=== PATIENT | female | born 1985 | race Caucasian/White ===

== ENCOUNTER 2019-04-17 15:42 | Emergency (ER) | payer MEDICARE, MEDICAID, SELFPAY ==
[2019-04-17 15:46] VITALS: BP 118/70; PULSE 90; RESP 16; TEMP 36.7; O2SAT 99
--- NOTE | 2019-04-17 16:13 | ED.GENADUL_ITS ---
Discharge Plan Disposition Patient Disposition: HOME Condition: Good Discharge Details Chief Complaint: RashLesion Clinical Impression: Insect bite Primary Care Provider: None,None ED Provider: Ilia Ortez Home Meds and New Rx's Prescriptions: New diphenhydramine HCl [Benadryl] 25 MG capsule 25 mg PO Q6H Qty: 100 RF: 0 hydroxyzine HCl 25 mg tablet 25 mg PO TID Qty: 14 RF: 0 No Action epinephrine 0.3 MG/0.3 ML auto-injector 0.3 mg IM ONCE Qty: 1 RF: 2 Discharge Instructions Instructions: Dermatitis (ED) Additional Instructions: At this time your rash is consistent with flea bites. Please wash all of your clothes, linens, and hot water. Vacuum and shampoo your carpets and chairs and couches. I would recommend washing all of your pets, and applying fully and take medicine. Please take the Benadryl and hydroxyzine as directed for the itching and rash. If you notice any worsening of your symptoms, or any new symptoms such as vomiting, diarrhea, fever, chills, shortness of breath, chest pain, numbness, weakness, or fainting , please return immediately to the emergency department for reevaluation. Please follow up with your primary care provider as soon as possible for reassessment and reevaluation. As always, it was a pleasure participating in your medical care today. Medical Decision Making This is a pleasant 34-year-old female who presents with a rash on her arms flanks for the last week, which is gradually been increasing. Notably itchy, improved with Benadryl. She stays at home with multiple animals all of which are known to have fleas, live inside, and sleep on her bed. She denies any other complaints. Physical exam demonstrates no concerning red flags but does demonstrate signs and symptoms notably clinically consistent with bite lesions that appear remarkably identical to fleabites. No evidence of scabies. No current clinical evidence of staph scalded skin syndrome, erythema multiforme, erythema migrans, toxic epidermal necrolysis, Rodarte-Fred syndrome, Kawasaki-like rash, meningococcemia, pemphigus vulgaris, or necrotizing fasciitis. I had a long discussion regarding the importance of cleaning her house, close, flea and tick medicine, will prescribe Benadryl and Atarax for itching. Discussed red flags which to return. I have extensively reviewed the treatment plan and discharge instructions with the patient. I have addressed all patient concerns at this time. The patient was made aware of what symptoms to monitor for that would warrant a return to the emergency department. Discussed the plan with the patient, they demonstrate verbal understanding and agreement with our assessment and plan at this time. HPI General Date/Time Provider Initiated Documentation: 04/17/19 16:05 . HPI Narrative: This is a pleasant 34-year-old female who presents today for evaluation of rash. Patient states that for the last week she has noticed a small very itchy little bug bite-like lesions on her arms flanks and some on her legs. It gradually been spreading. There is slightly improved with Benadryl, however she has run out of Benadryl. She denies any lesions in her mouth, burning when she urinates, vesicles, drainage, redness, fever or chills. She does stay at home with multiple animals, all of which are known to have fleas. She denies any new significant detergents. She has no other complaints at this time. Related Data Home Medications Medication Instructions Recorded Confirmed epinephrine 0.3 mg IM ONCE #1 syringe 15 04/17/19 diphenhydramine HCl [Benadryl] 25 mg PO Q6H #100 cap 04/17/19 hydroxyzine HCl 25 mg PO TID #14 tab 04/17/19 Previous Rx's Medication Instructions Recorded diphenhydramine HCl [Benadryl] 25 mg PO Q6H #100 cap 04/17/19 hydroxyzine HCl 25 mg PO TID #14 tab 04/17/19 Allergies Allergy/AdvReac Type Severity Reaction Status Date / Time venom-honey bee Allergy Severe Anaphylaxsi Unverified 04/17/19 15:49 s General Stated Complaint: RashLesion NATI: 5 Review of Systems All systems reviewed & are unremarkable except as noted in HPI and below PFSH Medical History Depression Family History Mother Diabetes Heart disease Social History Smoking/Tobacco Use Status: Never Alcohol Intake: never Drug use: Never Substance use type: does not use Do you feel safe at home: Yes Do you feel safe in your relationship?: Yes Exam Narrative Exam Narrative: 1.Const: Well-nourished, Well-developed, appearing stated age 2.Eyes: PERRL, no conjunctival injection, and symmetrical lids. 3.ENT: Atraumatic external nose and ears. Moist MM. Neck: Symmetric, trachea midline, No thyromegaly. 4.CVS: +S1/S2, No murmurs or gallops. Peripheral pulses 2+ and equal in all extremities. Brisk capillary refill in all extremities. 5.RESP: Unlabored respiratory effort. Clear to auscultation bilaterally. No w heezes rales or rhonchi 6.GI: Soft, Nontender/Nondistended, No hepatosplenomegaly. No guarding or rebound. 7.MSK: Normocephalic/Atraumatic, Extremities w/o deformity or ttp No cyanosis or clubbing, Normal movement of all extremities 8.Skin: Warm, Dry. Multiple small erythematous wheals that are mildly erythematous and irritated. Easily blanching. Clinically consistent with flea bite. No evidence of lesions in the intertriginous areas. Negative Nikolsky sign. No large vesicles or bulla. No palpable purpura. No oral lesions. No mucosal lesions. No evidence of severe cellulitis. No evidence of vaccine preventable rash. 9.Neuro: anesthesia assistant II-XII grossly intact. Sensation grossly intact, no focal neurologic deficits. 10.Psych: (AAO) x3. Appropriate mood and affect Course Vital Signs Vital signs: Vital Signs Temperature 36.7 C 04/17/19 15:46 Pulse 90 04/17/19 15:46 Respiratory Rate 16 04/17/19 15:46 Blood Pressure 118/70 04/17/19 15:46 Pulse Oximetry 99 04/17/19 15:46 Temperature 36.7 C 04/17/19 15:46 Temperature Source Temporal Artery Scan 04/17/19 15:46 Pulse 90 04/17/19 15:46 Respiratory Rate 16 04/17/19 15:46 Respiratory Effort Non-Labored 04/17/19 15:49 Blood Pressure 118/70 04/17/19 15:46 Blood Pressure Position Sitting 04/17/19 15:46 Pulse Oximetry 99 04/17/19 15:46 Oxygen Delivery Method Room Air 04/17/19 15:46 Oxygen Flow Rate 0 04/17/19 15:46 Pain Level 0 04/17/19 15:46
== END 2019-04-17 16:20 | disposition home or self-care (01) ==
PROVIDERS: Emergency Provider Student in an Organized Health Care Education/Training Program
DX: S40.861A Insect bite (nonvenomous) of right upper arm, initial encounter (principal); S40.862A Insect bite (nonvenomous) of left upper arm, initial encounter; W57.XXXA Bitten or stung by nonvenomous insect and other nonvenomous arthropods, initial encounter
CPT/HCPCS: 99283

== ENCOUNTER 2020-08-28 16:29 | Emergency (ER) | payer MEDICARE, MEDICAID, SELFPAY ==
[2020-08-28 17:28] VITALS: BP 113/73; PULSE 76; RESP 18; TEMP 37.1; O2SAT 97
--- NOTE | 2020-08-28 18:22 | W.ED.GENAD ---
Discharge Plan Disposition Patient Disposition: HOME Condition: Stable Discharge Details Clinical Impression: Dental infection Primary Care Provider: None,None ED Provider: Michael Michaels Home Meds and New Rx's Prescriptions: New penicillin V potassium 500 mg tablet 500 mg PO TID 10 Days Qty: 30 RF: 0 Continued epinephrine 0.3 MG/0.3 ML auto-injector 0.3 mg IM ONCE Qty: 1 RF: 2 diphenhydramine HCl [Benadryl] 25 MG capsule 25 mg PO Q6H Qty: 100 RF: 0 hydroxyzine HCl 25 mg tablet 25 mg PO TID Qty: 14 RF: 0 Discharge Instructions Instructions: Dental Abscess (ED) Additional Instructions: Okay to penicillin as directed. Cool and/or warm compresses every 2 hours for 20 minutes. [id number] Tylenol and/or Motrin as directed for discomfort. Please watch for new or worsening symptoms and return to the ER for any concerns. I am giving you the dental list, please contact a dentist tomorrow for prompt outpatient reevaluation Medical Decision Making 35-year-old non-smoker presents with left-sided dental discomfort and facial swelling over the past couple of weeks intermittent, now constant over the past few days. She clinically appears well, nontoxic. No pointing abscess that would require I&D. She is afebrile, no evidence of trismus. No evidence of facial cellulitis. Likely dental infection. Will provide Pen-Vee K prescription, first dose here. We will also provide our local dental list to help expedite outpatient dental follow-up. Patient agreeable with this plan and has no additional questions or concerns. Medical Records Medical records reviewed: Yes I reviewed the patient's medical records. HPI General Mode of arrival: ambulatory. Date/Time Provider Initiated Documentation: 08/28/20 18:22. Limitations to Documentation: no limitations. Information obtained by: patient. HPI Narrative: This is a 35-year-old female presenting to the ER concerned of a dental infection. She reports intermittent left upper dental pain and facial swelling over the past 2 weeks but persistent over the past few days. She has taken [id number] Tylenol and/or Motrin and reports that that has helped greatly with her discomfort but continues to have infection and would like antibiotics. She denies fever, ear pain, sore throat, chest pain, shortness of breath, skin rash, abscess, drainage. She is not a smoker. She denies any allergies to medications. She does not have a dentist. She has no additional concerns or questions at this time Related Data Home Medications Medication Instructions Recorded Confirmed epinephrine 0.3 mg IM ONCE #1 syringe 15 04/17/19 diphenhydramine HCl [Benadryl] 25 mg PO Q6H #100 cap 04/17/19 hydroxyzine HCl 25 mg PO TID #14 tab 04/17/19 penicillin V potassium 500 mg PO TID 10 Days #30 tab 08/28/20 Previous Rx's Medication Instructions Recorded diphenhydramine HCl [Benadryl] 25 mg PO Q6H #100 cap 04/17/19 hydroxyzine HCl 25 mg PO TID #14 tab 04/17/19 penicillin V potassium 500 mg PO TID 10 Days #30 tab 08/28/20 Allergies Allergy/AdvReac Type Severity Reaction Status Date / Time venom-honey bee Allergy Severe Anaphylaxsi Unverified 04/17/19 15:49 s General Stated Complaint: DentalOral NATI: 4 Review of Systems Constitutional Constitutional: Denies fever(s) and Denies headache(s) ENT Ears, Nose, Mouth, and Throat: Denies headache(s) and Denies neck pain Cardiovascular Cardiovascular: Denies dyspnea Respiratory Respiratory: Denies cough and Denies dyspnea Gastrointestinal Gastrointestinal: Denies nausea and Denies vomiting Musculoskeletal Musculoskeletal: Denies neck pain Integumentary/Breasts Skin/Breast: Denies erythema Neurologic Neurologic: Denies headache(s) [facility] Medical History Depression Family History Mother Diabetes Heart disease Social History Smoking/Tobacco Use Status: Never Smoking risk assessment performed?: Yes Alcohol Intake: never Drug use: Never Substance use type: does not use Do you feel safe at home: Yes Do you feel safe in your relationship?: Yes Exam Const General: cooperative, healthy appearing, comfortable and no acute distress Orientation: alert, awake and oriented x3 HENMT Head: normal to inspection, normocephalic and atraumatic Ears: external ears normal, TM's normal bilaterally and EAC's normal General nose exam: external nose normal Face images: 1. Diffuse mild swelling and discomfort to palpation. There is no induration, fluctuance, or erythema. Mouth: moist mucous membranes Teeth and gingiva: poor dentition Teeth image: 1. Dental caries throughout, tooth #12 with point discomfort. There is no pointing abscess. Throat: posterior oropharynx normal Eyes General: appearance normal, both eyes and all related structures Conjunctivae: conjunctivae normal Neck Neck: normal visual inspection, full ROM, no lymphadenopathy, no meningeal signs, trachea midline, supple and nontender Resp Effort & Inspection: normal respiratory effort and able to speak in complete sentences Auscultation: clear to auscultation bilaterally Cardio Rate: regular rate Rhythm: regular rhythm Skin General skin exam: no rashes or lesions noted Neuro General: patient alert, patient awake, moves all extremities and no focal motor deficits Sensory Exam: no sensory deficits noted Psych Appearance: grossly normal Mental Status: mental status grossly normal Course Vital Signs Vital signs: Vital Signs Temperature 37.1 C 08/28/20 17:28 Pulse 76 08/28/20 17:28 Respiratory Rate 18 08/28/20 17:28 Blood Pressure 113/73 08/28/20 17:28 Pulse Oximetry 97 08/28/20 17:28 Temperature 37.1 C 08/28/20 17:28 Temperature Source Oral 08/28/20 17:28 Pulse 76 08/28/20 17:28 Respiratory Rate 18 08/28/20 17:28 Respiratory Effort Non-Labored 08/28/20 16:41 Blood Pressure 113/73 08/28/20 17:28 Pulse Oximetry 97 08/28/20 17:28 Oxygen Delivery Method Room Air 08/28/20 17:28 Oxygen Flow Rate 0 08/28/20 17:28
[2020-08-28 18:31] VITALS: BP 113/73; PULSE 76; RESP 18; TEMP 37.1; O2SAT 97
[2020-08-28] MEDS: Penicillin V POTASSIUM 500 MG TAB PO (18:31)
== END 2020-08-28 18:39 | disposition home or self-care (01) ==
PROVIDERS: Emergency Provider Physician Assistant
DX: R68.84 Jaw pain (principal); K04.7 Periapical abscess without sinus
CPT/HCPCS: 99283

== ENCOUNTER 2021-09-13 16:54 | Emergency (ER) | payer MEDICARE, MEDICAID, SELFPAY ==
[2021-09-13 16:59] VITALS: BP 129/80; PULSE 79; RESP 16; TEMP 36.9; O2SAT 99
--- NOTE | 2021-09-13 17:01 | ED.GENADUL_ITS ---
Discharge Plan Disposition Patient Disposition: HOME Condition: Stable Discharge Details Clinical Impression: Pain, dental Primary Care Provider: None,None ED Provider: Radha Villalta Home Meds and New Rx's Prescriptions: New penicillin V potassium 500 mg tablet 500 mg PO QID 7 Days Qty: 28 0RF No Action [facility]rum [facility] 18-400 mg-mcg Tablet 1 tab PO DAILY 0RF Discharge Instructions Instructions: Toothache (ED) Additional Instructions: You were noted to have a dental fracture which is a crack in your tooth. This likely has caused your filling to be exposed which is causing the metal taste in her mouth. A cracked tooth is a risk of infection within the tooth. There is no evidence of tooth abscess on your exam today. You are being sent home with a prescription for antibiotics to take as directed until finished. Alternate tylenol and motrin as needed and directed for pain. Call your dentist on Wednesday morning to schedule a follow-up appointment for reevaluation. Return immediately to the emergency department if you develop any worsening or new concerning symptoms. Discharge Data Discharge Date/Time-TO BE ENTERED AT DEPARTURE: 09/13/21 18:32 Discharge Physician: Radha Villalta Medical Decision Making 36-year-old female presents with right upper dental pain for the past few days. Vitals within normal limits. She appears comfortable and nontoxic. Airway intact. Normal oropharynx. Poor dentition throughout. Particular tooth is noted to have a fracture with tenderness to palpation. There is a filling exposed. There is minimal surrounding edema but no significant erythema or abscess. Will cover with prophylactic antibiotics. She is going to call her dentist this week. Advised on cool soft foods. Usual and customary return precautions given prior to discharge. Medical Records Medical records reviewed: Yes I reviewed the patient's medical records. HPI General Mode of arrival: ambulatory . Date/Time Provider Initiated Documentation: 09/13/21 17:01 . Limitations to Documentation: no limitations . Information obtained by: patient . HPI Narrative: Pt is a 36yo M who presents to the ED w/ a c/o R upper dental pain for the past few days. Pt states she has occasionally had a bad taste in her mouth for the past few days. She denies any known fever. Related Data Home Medications Medication Instructions Recorded Confirmed multivitamin-ferrous 1 tab PO DAILY 09/13/21 09/13/21 fumarate-folic acid 18 mg-400 mcg tablet (Centrum Women) penicillin V potassium 500 mg 500 mg PO QID 7 Days #28 tab 09/13/21 tablet Previous Rx's Medication Instructions Recorded penicillin V potassium 500 mg 500 mg PO QID 7 Days #28 tab 09/13/21 tablet Allergies Allergy/AdvReac Type Severity Reaction Status Date / Time venom-honey bee Allergy Severe Anaphylaxsi Unverified 09/13/20 13:35 s bed bugs Allergy Uncoded 09/13/21 17:03 General Stated Complaint: DentalOral NATI: 4 Review of Systems All systems reviewed & are unremarkable except as noted in HPI and below Constitutional Constitutional: Reports as per HPI, Denies chills and Denies fever(s) Eyes Eyes: Denies blurry vision ENT Ears, Nose, Mouth, and Throat: Denies dizziness, Denies sore throat and Denies throat swelling Cardiovascular Cardiovascular: Denies chest pain and Denies dyspnea Respiratory Respiratory: Denies cough and Denies dyspnea Gastrointestinal Gastrointestinal: Denies abdominal pain, Denies diarrhea and Denies vomiting Genitourinary Genitourinary: Denies hematuria and Denies dysuria Musculoskeletal Musculoskeletal: Denies back pain and Denies numbness Integumentary/Breasts Skin/Breast: Denies lesions and Denies rash Neurologic Neurologic: Denies dizziness, Denies localized weakness and Denies numbness Allergic/Immunologic Allergic/Immunologic: Denies throat swelling PFSH All Active Problems (Updated 09/13/21 @ 17:54 by Radha Villalta DO) Pain, dental (Acute) Dental infection (Acute) Medical History (Updated 09/13/21 @ 17:54 by Radha Villalta DO) Depression Surgical History (Updated 09/14/21 @ 13:19 by Radha Villalta DO) No significant past surgical history Family History Mother Diabetes Heart disease Social History Smoking/Tobacco Use Status: Never Smoking risk assessment performed?: Yes Alcohol Intake: never Drug use: Never Substance use type: does not use Do you feel safe at home: Yes Do you feel safe in your relationship?: Yes Exam Const General: cooperative, healthy appearing and no acute distress Orientation: alert, awake and oriented x3 HENMT Head: normal to inspection Ears: hearing grossly normal bilaterally, external ears normal and TM's normal bilaterally General nose exam: external nose normal Face and sinus: normal facial exam Mouth: oral mucosae normal, no drooling and no trismus Teeth and gingiva: poor dentition Teeth image: 1. Tooth #5 fractured with lateral part of tooth mobile with palpation. There is minimal erythema of mucosa surrounding tooth. There is no fluctuance, indura tion, edema, drainage or bleeding. Throat: posterior oropharynx normal Eyes General: appearance normal, both eyes and all related structures Neck Neck: normal visual inspection, no lymphadenopathy, no meningeal signs, trachea midline, supple, no anterior neck swelling and No submandibular swelling Resp Effort & Inspection: normal respiratory effort and able to speak in complete sentences Cardio Rate: regular rate Skin General skin exam: no rashes or lesions noted Neuro General: patient alert, patient awake and patient oriented x3 Motor: muscle tone normal throughout Extrem General: normal to inspection and full ROM Psych Appearance: grossly normal Affect: normal affect
[2021-09-13] MEDS: Penicillin V POTASSIUM 500 MG TAB, 4 TABS/BTL PO (18:23)
[2021-09-13] MEDS: Penicillin V POTASSIUM 500 MG TAB PO (18:23)
== END 2021-09-13 18:32 | disposition home or self-care (01) ==
PROVIDERS: Emergency Provider Physician Assistant
DX: R68.84 Jaw pain (principal)
CPT/HCPCS: 99283